=== PATIENT | female | born 2000 | race Caucasian/White ===

== ENCOUNTER 2021-08-14 23:53 | Emergency (ER) | payer OTHER ==
[2021-08-15 00:35] VITALS: BP 121/67; PULSE 88; TEMP 98.4; BMI 23.9
[2021-08-15] MEDS ORDERED: DEXAMETHASONE LIQUID 0.5 MG/5 ML PO ONE (00:39)
[2021-08-15] MEDS ORDERED: DEXAMETHASONE SOD PHOSPHATE 10 MG/1 ML VIAL ONE (01:01)
== END 2021-08-15 01:15 | disposition home or self-care (01) ==
LOC: JER 23:53
DX: J06.9 Acute upper respiratory infection, unspecified (principal); Z11.52 Encounter for screening for COVID-19
CPT/HCPCS: 99283-25; C9803; U0003; U0005